=== PATIENT | female | born 1975 | race Caucasian/White ===

== ENCOUNTER → 2016-11-29 | Outpatient (CLI) | payer OTHER | LOC: BRMIMAGING 13:20 | PROVIDERS: ATTEND Physician Assistant Medical | DX: Z12.31 Encounter for screening mammogram for malignant neoplasm of breast (principal); Z13.820 Encounter for screening for osteoporosis; K90.0 Celiac disease; E53.8 Deficiency of other specified B group vitamins; E55.9 Vitamin D deficiency, unspecified; M25.561 Pain in right knee; M25.562 Pain in left knee; M54.9 Dorsalgia, unspecified | CPT/HCPCS: G0202 ==

== ENCOUNTER → 2017-03-19 | Outpatient (CLI) | payer OTHER | LOC: FIMAGING 09:01 | PROVIDERS: ATTEND Family Medicine | DX: G93.0 Cerebral cysts (principal) ==

== ENCOUNTER → 2017-04-28 | Outpatient (CLI) | payer OTHER ==
--- NOTE | 2017-04-28 15:26 | CPEEG ---
[f rep st] ELECTROENCEPHALOGRAM DATE OF STUDY: 04/28/2017 INTERPRETATION: Normal EEG during wakefulness and sleep. There were no potentially epileptogenic abnormalities present during the recording. REPORT: This EEG contains 10 Hz alpha to the posterior head regions. There was no abnormal activation at rest, during photic stimulation or hyperventilation. The patient became drowsy and fell asleep during the study. There was no abnormal activation during drowsiness, sleep, or during times of arousal. /[id number]/MODL MTDD
== END ==
LOC: FCPNEURO 08:50
PROVIDERS: ATTEND Physician Assistant Medical
DX: R42 Dizziness and giddiness (principal)